=== PATIENT | male | born 1985 ===

== ENCOUNTER 2021-12-08 11:22 | Emergency (ER) | payer BC ==
[2021-12-08] MEDS ORDERED: Lidocaine 1% 10 ML MDV IM ONE ×2 (12:15→13:35)
[2021-12-08] MEDS ORDERED: Bacitracin Oint 1 GM U/D Packet TOP ONE (12:15)
[2021-12-08] MEDS ORDERED: cefTRIAXone 1 GM Vial IV ONE (13:35)
== END 2021-12-08 14:00 | disposition home or self-care (01) ==
LOC: DL.ED 11:22
DX: S62.640A Nondisplaced fracture of proximal phalanx of right index finger, initial encounter for closed fracture (principal); W23.1XXA Caught, crushed, jammed, or pinched between stationary objects, initial encounter
CPT/HCPCS: 12001; 73130-RT; 96372; 99283; J0696